=== PATIENT | female | born 1960 | race African-American/Black ===

== ENCOUNTER 2016-10-12 13:01 | Emergency (ER) | payer BC ==
[~2016-10-12] VITALS: Ht 175.3 cm; Wt 122.5 kg
[2016-10-12 16:43] VITALS: BP 116/42
== END 2016-10-12 17:32 | disposition home or self-care (01) ==
LOC: ER 13:01
DX: T18.8XXA Foreign body in other parts of alimentary tract, initial encounter (principal); I10 Essential (primary) hypertension; X58.XXXA Exposure to other specified factors, initial encounter; Y93.89 Activity, other specified; Y92.89 Other specified places as the place of occurrence of the external cause; Y99.8 Other external cause status; Z88.2 Allergy status to sulfonamides
CPT/HCPCS: 70360; 71020; 74000